=== PATIENT | female | born 1955 | race African-American/Black ===

== ENCOUNTER → 2017-01-12 | Outpatient (CLI) | payer SELFPAY ==
[~2017-01-12] MED LIST: BP MEDS; LISINOPRIL40 MG PO; Lisinopril/Hctz PO; MOTRIN800 MG PO; MULTIVITAMIN1 SGL PO; NORVASC2.5 MG PO; NORVASC5 MG PO; SEPTRA DS 800 M1 TAB PO
== END | disposition home or self-care (01) ==
LOC: RESCLI 03:05
DX: Z12.11 Encounter for screening for malignant neoplasm of colon (principal); Z12.31 Encounter for screening mammogram for malignant neoplasm of breast; I10 Essential (primary) hypertension; E66.01 Morbid (severe) obesity due to excess calories; K21.9 Gastro-esophageal reflux disease without esophagitis; Z91.09 Other allergy status, other than to drugs and biological substances

== ENCOUNTER 2017-01-23 17:46 | Emergency (ER) | payer SELFPAY ==
[~2017-01-23] VITALS: Ht 160 cm; Wt 104.3 kg
[2017-01-23] MEDS ORDERED: ATENOLOL50 M1 PO (17:52)
[2017-01-23] MEDS ORDERED: HYDROCHLOROTHIA50 M1 PO (17:53)
[2017-01-23] MEDS ORDERED: BLOOD PRESSURE (17:53)
[2017-01-23] MEDS ORDERED: CLINDAMYCIN150 MG PO (18:03)
[2017-01-23] MEDS ORDERED: ZOFRAN4 MG PO (18:03)
== END 2017-01-23 18:15 | disposition home or self-care (01) ==
LOC: ED 17:46
DX: L03.116 Cellulitis of left lower limb (principal); I10 Essential (primary) hypertension; Z79.899 Other long term (current) drug therapy

== ENCOUNTER → 2017-11-09 | Outpatient (CLI) | payer SELFPAY ==
[~2017-11-09] MED LIST changes: +ATENOLOL50 M1 PO; +BLOOD PRESSURE; +CLINDAMYCIN150 MG PO; +HYDROCHLOROTHIA50 M1 PO; +ZOFRAN4 MG PO
== END | disposition home or self-care (01) ==
LOC: RESCLI 03:13
DX: I10 Essential (primary) hypertension (principal); K21.9 Gastro-esophageal reflux disease without esophagitis; E66.01 Morbid (severe) obesity due to excess calories

== ENCOUNTER → 2018-02-08 | Outpatient (CLI) | payer SELFPAY | END | disposition home or self-care (01) | LOC: RESCLI 01:49 | DX: I10 Essential (primary) hypertension (principal); E66.01 Morbid (severe) obesity due to excess calories ==

== ENCOUNTER → 2018-05-13 | Outpatient (CLI) | payer SELFPAY | END | disposition home or self-care (01) | LOC: RESCLI 03:41 | DX: I10 Essential (primary) hypertension (principal); E66.01 Morbid (severe) obesity due to excess calories; K21.9 Gastro-esophageal reflux disease without esophagitis; R00.2 Palpitations; Z79.899 Other long term (current) drug therapy; Z90.710 Acquired absence of both cervix and uterus; Z90.49 Acquired absence of other specified parts of digestive tract; Z88.8 Allergy status to other drugs, medicaments and biological substances ==

== ENCOUNTER → 2018-05-18 | Outpatient (CLI) | payer SELFPAY ==
--- NOTE | ~2018-05-18 | EKG ---
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
== END | disposition home or self-care (01) ==
LOC: RESCLI 03:42
DX: I10 Essential (primary) hypertension (principal); K21.9 Gastro-esophageal reflux disease without esophagitis; E66.01 Morbid (severe) obesity due to excess calories; Z90.710 Acquired absence of both cervix and uterus; Z90.49 Acquired absence of other specified parts of digestive tract

== ENCOUNTER → 2018-11-09 | Outpatient (CLI) | payer MEDICARE | END | disposition home or self-care (01) | LOC: RESCLI 10:10 | DX: Z12.11 Encounter for screening for malignant neoplasm of colon (principal); I10 Essential (primary) hypertension; K21.9 Gastro-esophageal reflux disease without esophagitis; J30.9 Allergic rhinitis, unspecified; E66.01 Morbid (severe) obesity due to excess calories; Z79.899 Other long term (current) drug therapy; Z90.49 Acquired absence of other specified parts of digestive tract; Z88.8 Allergy status to other drugs, medicaments and biological substances ==